=== PATIENT | male | born 1950 | race Caucasian/White ===

== ENCOUNTER 2020-11-12 18:27 | Emergency (ER) | payer MEDICARE, OTHER ==
[~2020-11-12] VITALS: Ht 177.8 cm; Wt 50.0 kg
[~2020-11-12 18:27] MED LIST: ASPI-1444 PO; BENZ2TAB10 PO; CHOL10002 PO; CLOZ100T29 PO; DOCU-350 PO; ESCI20TA87 PO; FAMO-136 PO; THEO300C PO
[2020-11-12 19:30] LABS: BASOPHILS % (AUTO) 0.6 % (0.0-2.0); EOSINOPHILS % (AUTO) 1.6 % (1.0-6.0); HEMATOCRIT 38.6 % (41-53); HEMOGLOBIN 12.6 g/dL (13.5-17.5); LYMPHOCYTES # (AUTO) 1.3 K/uL (1.0-4.8); LYMPHOCYTES % (AUTO) 17.8 % (22.0-44.0); MEAN CORPUSCULAR HEMOGLOBIN 27.8 pg (26.0-34.0); MEAN CORPUSCULAR HGB CONC 32.7 G/dL (31.0-37.0); MEAN CORPUSCULAR VOLUME 85 fL (80-100); MONOCYTES # (AUTO) 0.5 K/uL (0.1-1.0); MONOCYTES % (AUTO) 6.3 % (2.0-9.0); NEUTROPHILS # (AUTO) 5.5 K/uL (1.8-7.7); NEUTROPHILS % (AUTO) 73.7 % (40.0-70.0); PLATELET COUNT (AUTO) 198 K/uL (150-450); RED BLOOD CELL COUNT(AUTO) 4.54 MIL/uL (4.50-5.90); RED CELL DISTRIBUTION WIDTH 14.4 % (11.5-14.5)
[2020-11-12 19:46] LABS: ANION GAP 9 mmol/L (8-16); CALCIUM, TOTAL 8.6 mg/dL (8.8-10.5); CARBON DIOXIDE 28 mmol/L (22-29); CHLORIDE 106 mmol/L (98-107); CREATININE 1.06 mg/dL (0.60-1.30); GLOMERULAR FILTR. RATE CALC > 60 mL/min (>60); GLUCOSE,RANDOM 101 mg/dL (70-110); POTASSIUM 3.8 mmol/L (3.5-5.1); SODIUM SERUM 143 mmol/L (136-145); UREA NITROGEN, BLOOD 26 mg/dL (7-18)
[2020-11-12 20:16] VITALS: BP 100/62
== END 2020-11-12 20:57 | disposition home or self-care (01) ==
LOC: EMS 18:27
DX: I47.1 Supraventricular tachycardia (principal); J44.9 Chronic obstructive pulmonary disease, unspecified; F32.9 Major depressive disorder, single episode, unspecified; K21.9 Gastro-esophageal reflux disease without esophagitis; F20.9 Schizophrenia, unspecified; F17.210 Nicotine dependence, cigarettes, uncomplicated
CPT/HCPCS: 71045; 80048; 83735; 84484; 85025; 93005; 99291; 36415-L1; 36415-TC

== ENCOUNTER 2021-07-17 13:32 | Inpatient (IN) | payer MEDICARE, OTHER ==
[~2021-07-17] VITALS: Ht 188 cm; Wt 51.5 kg
[2021-07-17 15:44] LABS: BASOPHILS % (AUTO) 0.9 % (0.0-2.0); EOSINOPHILS % (AUTO) 4.2 % (1.0-6.0); HEMATOCRIT 40.3 % (41-53); HEMOGLOBIN 12.9 g/dL (13.5-17.5); LYMPHOCYTES # (AUTO) 1.4 K/uL (1.0-4.8); LYMPHOCYTES % (AUTO) 15.4 % (22.0-44.0); MEAN CORPUSCULAR HEMOGLOBIN 27.5 pg (26.0-34.0); MEAN CORPUSCULAR HGB CONC 32.1 G/dL (31.0-37.0); MEAN CORPUSCULAR VOLUME 86 fL (80-100); MONOCYTES # (AUTO) 0.6 K/uL (0.1-1.0); MONOCYTES % (AUTO) 6.5 % (2.0-9.0); NEUTROPHILS # (AUTO) 6.6 K/uL (1.8-7.7); PLATELET COUNT (AUTO) 277 K/uL (150-450); RED CELL DISTRIBUTION WIDTH 14.9 % (11.5-14.5)
[2021-07-17 15:57] LABS: PROTHROMBIN TIME 10.6 SEC (9.4-11.6)
[2021-07-17 15:58] LABS: ANION GAP 7 mmol/L (8-16); CALCIUM, TOTAL 8.8 mg/dL (8.8-10.5); CARBON DIOXIDE 30 mmol/L (22-29); CHLORIDE 109 mmol/L (98-107); CREATININE 0.65 mg/dL (0.60-1.30); GLUCOSE,RANDOM 96 mg/dL (70-110); POTASSIUM 3.9 mmol/L (3.5-5.1); SODIUM SERUM 146 mmol/L (136-145); UREA NITROGEN, BLOOD 18 mg/dL (7-18)
[2021-07-17 16:00] LABS: GLOMERULAR FILTR. RATE CALC > 60 mL/min (>60)
[2021-07-17 16:04] LABS: ALANINE AMINOTRANSFERASE 26 U/L (12-78); ALBUMIN 3.3 g/dL (3.4-5.0); ALKALINE PHOSPHATASE 102 U/L (46-116); ASPARTATE AMINOTRANSFERASE 13 U/L (15-37); BILIRUBIN,TOTAL 0.3 mg/dL (0.1-1.0); TOTAL PROTEIN, SERUM 6.8 g/dL (6.4-8.2)
[2021-07-17 18:00] LABS: COVID AG,FIA SOURCE NASOPHARYNGEAL
[2021-07-17] MEDS ORDERED: ONDANSETRON HCL 4 MG/2 ML VIAL IVP PRN (19:00)
[2021-07-17] MEDS ORDERED: ACETAMINOPHEN 325 MG TABLET PO PRN (19:00)
[2021-07-17] MEDS ORDERED: 0.9% SODIUM CHLORIDE 10 ML SYRINGE IVP PRN (19:00)
[2021-07-17 21:34] VITALS: BP 124/80
[2021-07-18] MEDS ORDERED: SODIUM CHLORIDE 0.9% 1,000 ML IV ONE (01:00)
[2021-07-18] MEDS ORDERED: ALBUTEROL SULFATE 2.5 MG/0.5 ML NEB SOLUTION NEB PRN (01:45)
[2021-07-18] MEDS ORDERED: ACETAMINOPHEN 325 MG TABLET PO PRN (01:45)
[2021-07-18] MEDS ORDERED: MORPHINE SULFATE 2 MG/ML SYRINGE IVP PRN (01:45)
[2021-07-18] MEDS ORDERED: ONDANSETRON HCL 4 MG/2 ML VIAL IVP PRN (01:45)
[2021-07-18] MEDS ORDERED: BISACODYL 10 MG RECTAL RECTAL SUPPOSITORY PR PRN (01:45)
[2021-07-18] MEDS ORDERED: ZOLPIDEM TARTRATE 5 MG TABLET PO PRN (01:45)
[2021-07-18] MEDS ORDERED: IPRATROPIUM BROMIDE 0.5 MG/2.5 ML NEB SOLUTION NEB PRN (01:45)
[2021-07-18] MEDS ORDERED: MAGNESIUM HYDROXIDE SUSPENSION 30 ML UDCUP PO PRN (01:45)
[2021-07-18] MEDS: PANTOPRAZOLE SODIUM 80 MG in SODIUM CHLORIDE 0.9% 100 ML IV SCH ×3 (03:39→23:19)
[2021-07-18 04:00] VITALS: BP 122/76
[2021-07-18] MEDS ORDERED: INFLUENZA VIRUS VACCINE QVS 2021-22 (6MO+)/PF 60 MCG/0.5 ML SYRINGE IM. ONE (06:45)
[2021-07-18] MEDS ORDERED: -PHARMACY VACCINE NOTE- MISC ONE (06:45)
[2021-07-18 07:54] VITALS: BP 145/71
[2021-07-18] MEDS: ESCITALOPRAM OXALATE 20 MG TABLET PO SCH (09:07)
[2021-07-18] MEDS: CHOLECALCIFEROL (VIT D3) 1,000 UNITS [25 MCG] TABLET PO SCH (09:07)
[2021-07-18] MEDS: BENZTROPINE MESYLATE 2 MG TABLET PO SCH (09:07)
[2021-07-18] MEDS: FAMOTIDINE 20 MG TABLET PO SCH (09:07)
[2021-07-18] MEDS: DOCUSATE SODIUM 100 MG CAPSULE PO SCH ×2 (09:07→20:40)
[2021-07-18 10:20] LABS: BASOPHILS % (AUTO) 1.1 % (0.0-2.0); EOSINOPHILS % (AUTO) 6.7 % (1.0-6.0); HEMATOCRIT 37.7 % (41-53); HEMOGLOBIN 12.2 g/dL (13.5-17.5); LYMPHOCYTES # (AUTO) 1.3 K/uL (1.0-4.8); LYMPHOCYTES % (AUTO) 18.9 % (22.0-44.0); MEAN CORPUSCULAR HEMOGLOBIN 27.8 pg (26.0-34.0); MEAN CORPUSCULAR HGB CONC 32.4 G/dL (31.0-37.0); MEAN CORPUSCULAR VOLUME 86 fL (80-100); MONOCYTES # (AUTO) 0.4 K/uL (0.1-1.0); MONOCYTES % (AUTO) 6.5 % (2.0-9.0); NEUTROPHILS # (AUTO) 4.5 K/uL (1.8-7.7); NEUTROPHILS % (AUTO) 66.8 % (40.0-70.0); PLATELET COUNT (AUTO) 246 K/uL (150-450)
[2021-07-18 10:37] LABS: ALANINE AMINOTRANSFERASE 22 U/L (12-78); ALBUMIN 3.1 g/dL (3.4-5.0); ALKALINE PHOSPHATASE 95 U/L (46-116); ANION GAP 8 mmol/L (8-16); ASPARTATE AMINOTRANSFERASE 16 U/L (15-37); BILIRUBIN,TOTAL 0.5 mg/dL (0.1-1.0); CALCIUM, TOTAL 8.5 mg/dL (8.8-10.5); CARBON DIOXIDE 29 mmol/L (22-29); CHLORIDE 110 mmol/L (98-107); CREATININE 0.59 mg/dL (0.60-1.30); GLUCOSE,RANDOM 82 mg/dL (70-110); POTASSIUM 4.2 mmol/L (3.5-5.1); SODIUM SERUM 147 mmol/L (136-145); UREA NITROGEN, BLOOD 15 mg/dL (7-18)
[2021-07-18 10:47] LABS: GLOMERULAR FILTR. RATE CALC > 60 mL/min (>60)
[2021-07-18] MEDS: THEOPHYLLINE ANHYDROUS 300 MG PO SCH (12:09)
[2021-07-18] MEDS ORDERED: PEG 3350/NA SULF,BICARB,CL/KCL 4000 ML SOLUTION PO ONE (13:15)
[2021-07-18 15:45] VITALS: BP 107/65
[2021-07-18] MEDS: DEXTROSE 5%-WATER 1,000 ML IV SCH (16:07)
[2021-07-18 20:00] VITALS: BP 123/86
[2021-07-18] MEDS: DOCUSATE SODIUM 250 MG CAPSULE PO SCH (20:40)
[2021-07-18] MEDS: CloZAPine 100 MG RAPDIS TABLET PO SCH (20:40)
[2021-07-19 04:20] VITALS: BP 106/72
[2021-07-19] MEDS: DEXTROSE 5%-WATER 1,000 ML IV SCH ×2 (06:19→23:48)
[2021-07-19 07:18] LABS: BASOPHILS % (AUTO) 1.1 % (0.0-2.0); EOSINOPHILS % (AUTO) 3.6 % (1.0-6.0); HEMATOCRIT 38.9 % (41-53); HEMOGLOBIN 12.6 g/dL (13.5-17.5); LYMPHOCYTES # (AUTO) 1.1 K/uL (1.0-4.8); LYMPHOCYTES % (AUTO) 14.1 % (22.0-44.0); MEAN CORPUSCULAR HEMOGLOBIN 27.8 pg (26.0-34.0); MEAN CORPUSCULAR HGB CONC 32.4 G/dL (31.0-37.0); MEAN CORPUSCULAR VOLUME 86 fL (80-100); MONOCYTES # (AUTO) 0.6 K/uL (0.1-1.0); MONOCYTES % (AUTO) 7.4 % (2.0-9.0); NEUTROPHILS % (AUTO) 73.8 % (40.0-70.0); PLATELET COUNT (AUTO) 238 K/uL (150-450); RED BLOOD CELL COUNT(AUTO) 4.54 MIL/uL (4.50-5.90); RED CELL DISTRIBUTION WIDTH 15.1 % (11.5-14.5)
[2021-07-19 07:43] LABS: ALANINE AMINOTRANSFERASE 23 U/L (12-78); ALBUMIN 3.1 g/dL (3.4-5.0); ALKALINE PHOSPHATASE 97 U/L (46-116); ANION GAP 7 mmol/L (8-16); ASPARTATE AMINOTRANSFERASE 26 U/L (15-37); BILIRUBIN,TOTAL 0.6 mg/dL (0.1-1.0); CALCIUM, TOTAL 8.5 mg/dL (8.8-10.5); CARBON DIOXIDE 31 mmol/L (22-29); CHLORIDE 107 mmol/L (98-107); CREATININE 0.59 mg/dL (0.60-1.30); GLUCOSE,RANDOM 121 mg/dL (70-110); SODIUM SERUM 145 mmol/L (136-145); TOTAL PROTEIN, SERUM 6.1 g/dL (6.4-8.2); UREA NITROGEN, BLOOD 11 mg/dL (7-18)
[2021-07-19 07:45] LABS: GLOMERULAR FILTR. RATE CALC > 60 mL/min (>60)
[2021-07-19 08:11] VITALS: BP 124/80
[2021-07-19] MEDS ORDERED: SODIUM CHLORIDE 0.9% 1,000 ML ONE (08:18)
[2021-07-19] MEDS: DOCUSATE SODIUM 100 MG CAPSULE PO SCH ×2 (09:00→19:40)
[2021-07-19] MEDS ORDERED: BARIUM SULFATE 0.1% SUSPENSION 450 ML BOTTLE ONE ×2 (09:21)
[2021-07-19] MEDS: FAMOTIDINE 20 MG TABLET PO SCH (10:28)
[2021-07-19] MEDS: THEOPHYLLINE ANHYDROUS 300 MG PO SCH (10:28)
[2021-07-19] MEDS: BENZTROPINE MESYLATE 2 MG TABLET PO SCH (10:28)
[2021-07-19] MEDS: ESCITALOPRAM OXALATE 20 MG TABLET PO SCH (10:28)
[2021-07-19] MEDS: CHOLECALCIFEROL (VIT D3) 1,000 UNITS [25 MCG] TABLET PO SCH (10:28)
[2021-07-19 15:17] VITALS: BP 112/73
[2021-07-19] MEDS ORDERED: SODIUM CHLORIDE 0.9% 100 ML ONE (17:15)
[2021-07-19] MEDS ORDERED: IOHEXOL 350 MG/ML 100 ML VIAL ONE (17:15)
[2021-07-19] MEDS: DOCUSATE SODIUM 250 MG CAPSULE PO SCH (19:40)
[2021-07-19 19:47] VITALS: BP 108/71
[2021-07-19] MEDS: CloZAPine 100 MG RAPDIS TABLET PO SCH (20:06)
[2021-07-20] MEDS ORDERED: PROPOFOL 1% 20 ML VIAL IVP ONE (05:27)
[2021-07-20] MEDS ORDERED: LIDOCAINE 1% 10 ML VIAL IM ONE (05:27)
[2021-07-20 05:53] VITALS: BP 108/78
[2021-07-20 07:56] VITALS: BP 132/80
[2021-07-20] MEDS: DEXTROSE 5%-WATER 1,000 ML IV SCH ×3 (08:00→21:35)
[2021-07-20] MEDS: CHOLECALCIFEROL (VIT D3) 1,000 UNITS [25 MCG] TABLET PO SCH (08:54)
[2021-07-20] MEDS: THEOPHYLLINE ANHYDROUS 300 MG PO SCH (08:54)
[2021-07-20] MEDS: FAMOTIDINE 20 MG TABLET PO SCH (08:54)
[2021-07-20] MEDS: BENZTROPINE MESYLATE 2 MG TABLET PO SCH (08:54)
[2021-07-20] MEDS: ESCITALOPRAM OXALATE 20 MG TABLET PO SCH (08:54)
[2021-07-20] MEDS: DOCUSATE SODIUM 100 MG CAPSULE PO SCH ×2 (08:55→21:00)
[2021-07-20 12:21] LABS: BASOPHILS % (AUTO) 0.8 % (0.0-2.0); EOSINOPHILS % (AUTO) 6.5 % (1.0-6.0); HEMOGLOBIN 11.2 g/dL (13.5-17.5); LYMPHOCYTES # (AUTO) 0.9 K/uL (1.0-4.8); MEAN CORPUSCULAR HEMOGLOBIN 27.8 pg (26.0-34.0); MEAN CORPUSCULAR VOLUME 87 fL (80-100); MONOCYTES # (AUTO) 0.4 K/uL (0.1-1.0); NEUTROPHILS % (AUTO) 70.7 % (40.0-70.0); PLATELET COUNT (AUTO) 227 K/uL (150-450); RED BLOOD CELL COUNT(AUTO) 4.04 MIL/uL (4.50-5.90); RED CELL DISTRIBUTION WIDTH 15.1 % (11.5-14.5)
[2021-07-20 13:02] LABS: ALANINE AMINOTRANSFERASE 28 U/L (12-78); ALBUMIN 2.7 g/dL (3.4-5.0); ALKALINE PHOSPHATASE 95 U/L (46-116); ANION GAP 5 mmol/L (8-16); ASPARTATE AMINOTRANSFERASE 26 U/L (15-37); BILIRUBIN,TOTAL 0.7 mg/dL (0.1-1.0); CALCIUM, TOTAL 7.9 mg/dL (8.8-10.5); CARBON DIOXIDE 29 mmol/L (22-29); CHLORIDE 96 mmol/L (98-107); POTASSIUM 3.5 mmol/L (3.5-5.1); SODIUM SERUM 130 mmol/L (136-145); TOTAL PROTEIN, SERUM 5.6 g/dL (6.4-8.2); UREA NITROGEN, BLOOD 3 mg/dL (7-18)
[2021-07-20 13:06] LABS: GLUCOSE,RANDOM 473 mg/dL (70-110)
[2021-07-20 13:07] LABS: GLOMERULAR FILTR. RATE CALC > 60 mL/min (>60)
[2021-07-20 14:02] LABS: GLUCOMETER DEV NAME(LOC) 6N.1; GLUCOSE,POINT OF CARE 117 MG/DL (70-110)
[2021-07-20 15:26] VITALS: BP 114/65
[2021-07-20 20:00] VITALS: BP 121/71
[2021-07-20] MEDS: DOCUSATE SODIUM 250 MG CAPSULE PO SCH (21:00)
[2021-07-20] MEDS: CloZAPine 100 MG RAPDIS TABLET PO SCH (21:35)
[2021-07-21 04:53] VITALS: BP 122/76
[2021-07-21 07:53] VITALS: BP 121/75
[2021-07-21] MEDS: CHOLECALCIFEROL (VIT D3) 1,000 UNITS [25 MCG] TABLET PO SCH (08:30)
[2021-07-21] MEDS: BENZTROPINE MESYLATE 2 MG TABLET PO SCH (08:30)
[2021-07-21] MEDS: THEOPHYLLINE ANHYDROUS 300 MG PO SCH (08:30)
[2021-07-21] MEDS: ESCITALOPRAM OXALATE 20 MG TABLET PO SCH (08:30)
[2021-07-21] MEDS: DOCUSATE SODIUM 100 MG CAPSULE PO SCH ×2 (08:30→19:52)
[2021-07-21] MEDS: FAMOTIDINE 20 MG TABLET PO SCH (08:31)
[2021-07-21] MEDS: DEXTROSE 5%-WATER 1,000 ML IV SCH ×2 (09:56→23:33)
[2021-07-21] MEDS ORDERED: MAGNESIUM CITRATE 300 ML ORAL SOLUTION PO PRN (10:30)
[2021-07-21 15:58] VITALS: BP 119/78
[2021-07-21] MEDS: DOCUSATE SODIUM 250 MG CAPSULE PO SCH (19:52)
[2021-07-21] MEDS: HYDROCODONE/ACETAMINOPHEN 5-325 MG TABLET PO PRN (19:52)
[2021-07-21] MEDS: CloZAPine 100 MG RAPDIS TABLET PO SCH (19:52)
[2021-07-21 20:16] VITALS: BP 121/74
[2021-07-22] MEDS: HYDROCODONE/ACETAMINOPHEN 5-325 MG TABLET PO PRN (02:46)
[2021-07-22 04:47] VITALS: BP 101/73
[2021-07-22 07:58] VITALS: BP 119/73
[2021-07-22] MEDS: THEOPHYLLINE ANHYDROUS 300 MG PO SCH (08:54)
[2021-07-22] MEDS: DOCUSATE SODIUM 100 MG CAPSULE PO SCH ×2 (08:54→20:18)
[2021-07-22] MEDS: FAMOTIDINE 20 MG TABLET PO SCH (08:54)
[2021-07-22] MEDS: ESCITALOPRAM OXALATE 20 MG TABLET PO SCH (08:54)
[2021-07-22] MEDS: BENZTROPINE MESYLATE 2 MG TABLET PO SCH (08:54)
[2021-07-22] MEDS: CHOLECALCIFEROL (VIT D3) 1,000 UNITS [25 MCG] TABLET PO SCH (08:54)
[2021-07-22 15:29] VITALS: BP 104/67
[2021-07-22] MEDS ORDERED: SODIUM PHOS/SODIUM BIPHOS 133 ML ENEMA PR PRN (16:00)
[2021-07-22] MEDS: DEXTROSE 5%-WATER 1,000 ML IV SCH (17:58)
[2021-07-22 19:57] VITALS: BP 116/71
[2021-07-22] MEDS: DOCUSATE SODIUM 250 MG CAPSULE PO SCH (20:19)
[2021-07-22] MEDS: CloZAPine 100 MG RAPDIS TABLET PO SCH (20:19)
[2021-07-23 04:18] VITALS: BP 102/71
[2021-07-23] MEDS ORDERED: SODIUM PHOS/SODIUM BIPHOS 133 ML ENEMA PR ONE (06:45)
[2021-07-23 06:50] LABS: BASOPHILS % (AUTO) 0.7 % (0.0-2.0); EOSINOPHILS % (AUTO) 5.6 % (1.0-6.0); HEMATOCRIT 39.9 % (41-53); HEMOGLOBIN 12.9 g/dL (13.5-17.5); LYMPHOCYTES # (AUTO) 1.2 K/uL (1.0-4.8); LYMPHOCYTES % (AUTO) 16.3 % (22.0-44.0); MEAN CORPUSCULAR HEMOGLOBIN 27.6 pg (26.0-34.0); MEAN CORPUSCULAR HGB CONC 32.3 G/dL (31.0-37.0); MEAN CORPUSCULAR VOLUME 86 fL (80-100); MONOCYTES # (AUTO) 0.6 K/uL (0.1-1.0); MONOCYTES % (AUTO) 7.8 % (2.0-9.0); NEUTROPHILS # (AUTO) 5.3 K/uL (1.8-7.7); NEUTROPHILS % (AUTO) 69.6 % (40.0-70.0); PLATELET COUNT (AUTO) 271 K/uL (150-450); RED BLOOD CELL COUNT(AUTO) 4.66 MIL/uL (4.50-5.90); RED CELL DISTRIBUTION WIDTH 15.2 % (11.5-14.5)
[2021-07-23] MEDS ORDERED: MAGNESIUM CITRATE 300 ML ORAL SOLUTION PO ONE ×2 (07:00)
[2021-07-23 07:13] LABS: ALANINE AMINOTRANSFERASE 32 U/L (12-78); ALBUMIN 3.1 g/dL (3.4-5.0); ALKALINE PHOSPHATASE 120 U/L (46-116); ANION GAP 5 mmol/L (8-16); ASPARTATE AMINOTRANSFERASE 24 U/L (15-37); CARBON DIOXIDE 33 mmol/L (22-29); CHLORIDE 104 mmol/L (98-107); CREATININE 0.78 mg/dL (0.60-1.30); GLUCOSE,RANDOM 133 mg/dL (70-110); POTASSIUM 3.9 mmol/L (3.5-5.1); SODIUM SERUM 142 mmol/L (136-145); TOTAL PROTEIN, SERUM 6.4 g/dL (6.4-8.2); UREA NITROGEN, BLOOD 5 mg/dL (7-18)
[2021-07-23 07:16] LABS: GLOMERULAR FILTR. RATE CALC > 60 mL/min (>60)
[2021-07-23 08:00] VITALS: BP 117/73
[2021-07-23] MEDS: DOCUSATE SODIUM 100 MG CAPSULE PO SCH ×2 (09:13→20:37)
[2021-07-23] MEDS: ESCITALOPRAM OXALATE 20 MG TABLET PO SCH (09:14)
[2021-07-23] MEDS: FAMOTIDINE 20 MG TABLET PO SCH (09:14)
[2021-07-23] MEDS: BENZTROPINE MESYLATE 2 MG TABLET PO SCH (09:14)
[2021-07-23] MEDS: THEOPHYLLINE ANHYDROUS 300 MG PO SCH (09:14)
[2021-07-23] MEDS: CHOLECALCIFEROL (VIT D3) 1,000 UNITS [25 MCG] TABLET PO SCH (09:15)
[2021-07-23] MEDS: DEXTROSE 5%-WATER 1,000 ML IV SCH ×2 (09:19→16:00)
[2021-07-23] MEDS: NEOMYCIN SULFATE 500 MG TABLET PO SCH ×3 (13:04→22:24)
[2021-07-23] MEDS: ERYTHROMYCIN 250 MG DR TABLET PO SCH ×3 (13:04→20:37)
[2021-07-23 15:30] VITALS: BP 114/64
[2021-07-23 20:00] VITALS: BP 90/64
[2021-07-23] MEDS: HYDROCODONE/ACETAMINOPHEN 5-325 MG TABLET PO PRN (20:37)
[2021-07-23] MEDS: DOCUSATE SODIUM 250 MG CAPSULE PO SCH (20:37)
[2021-07-23] MEDS: CloZAPine 100 MG RAPDIS TABLET PO SCH (20:37)
[2021-07-24] MEDS: HYDROCODONE/ACETAMINOPHEN 5-325 MG TABLET PO PRN (03:17)
[2021-07-24 04:00] VITALS: BP 132/76
[2021-07-24] MEDS: DEXTROSE 5%-WATER 1,000 ML IV SCH ×2 (05:20→21:08)
[2021-07-24 07:51] LABS: BASOPHILS % (AUTO) 0.7 % (0.0-2.0); EOSINOPHILS % (AUTO) 4.8 % (1.0-6.0); HEMATOCRIT 37.6 % (41-53); HEMOGLOBIN 12.1 g/dL (13.5-17.5); LYMPHOCYTES # (AUTO) 1.4 K/uL (1.0-4.8); LYMPHOCYTES % (AUTO) 16.3 % (22.0-44.0); MEAN CORPUSCULAR HEMOGLOBIN 27.7 pg (26.0-34.0); MEAN CORPUSCULAR HGB CONC 32.2 G/dL (31.0-37.0); MEAN CORPUSCULAR VOLUME 86 fL (80-100); MONOCYTES # (AUTO) 0.7 K/uL (0.1-1.0); MONOCYTES % (AUTO) 8.3 % (2.0-9.0); NEUTROPHILS # (AUTO) 6.2 K/uL (1.8-7.7); NEUTROPHILS % (AUTO) 69.9 % (40.0-70.0); PLATELET COUNT (AUTO) 273 K/uL (150-450); RED BLOOD CELL COUNT(AUTO) 4.38 MIL/uL (4.50-5.90); RED CELL DISTRIBUTION WIDTH 15.1 % (11.5-14.5)
[2021-07-24 08:11] LABS: ALANINE AMINOTRANSFERASE 27 U/L (12-78); ALBUMIN 2.8 g/dL (3.4-5.0); ALKALINE PHOSPHATASE 114 U/L (46-116); ANION GAP 3 mmol/L (8-16); ASPARTATE AMINOTRANSFERASE 21 U/L (15-37); BILIRUBIN,TOTAL 0.8 mg/dL (0.1-1.0); CALCIUM, TOTAL 8.6 mg/dL (8.8-10.5); CARBON DIOXIDE 33 mmol/L (22-29); CHLORIDE 104 mmol/L (98-107); CREATININE 0.78 mg/dL (0.60-1.30); GLUCOSE,RANDOM 95 mg/dL (70-110); SODIUM SERUM 140 mmol/L (136-145); UREA NITROGEN, BLOOD 7 mg/dL (7-18)
[2021-07-24 08:12] LABS: GLOMERULAR FILTR. RATE CALC > 60 mL/min (>60)
[2021-07-24 08:24] VITALS: BP 104/72
[2021-07-24] MEDS: THEOPHYLLINE ANHYDROUS 300 MG PO SCH (09:00)
[2021-07-24] MEDS: DOCUSATE SODIUM 100 MG CAPSULE PO SCH ×2 (09:00→21:08)
[2021-07-24] MEDS: CHOLECALCIFEROL (VIT D3) 1,000 UNITS [25 MCG] TABLET PO SCH (09:00)
[2021-07-24] MEDS: ESCITALOPRAM OXALATE 20 MG TABLET PO SCH (09:00)
[2021-07-24] MEDS: BENZTROPINE MESYLATE 2 MG TABLET PO SCH (09:00)
[2021-07-24] MEDS: FAMOTIDINE 20 MG TABLET PO SCH (09:00)
[2021-07-24] MEDS ORDERED: RINGERS SOLUTION,LACTATED 1,000 ML IV ONE ×2 (09:14→15:00)
[2021-07-24 13:51] VITALS: BP 106/64
[2021-07-24] MEDS ORDERED: SODIUM CHLORIDE 0.9% 0 ML ONE (14:17)
[2021-07-24] MEDS ORDERED: DIGOXIN 250 MCG/ML 2 ML AMP ONE (14:51)
[2021-07-24] MEDS ORDERED: AMIODARONE HCL 360 MG in DEXTROSE 5%-WATER 242.8 ML IV ONE (15:30)
[2021-07-24] MEDS ORDERED: AMIODARONE HCL 150 MG in DEXTROSE 5%-WATER 97 ML IV ONE (15:30)
[2021-07-24 20:00] VITALS: BP 104/73
[2021-07-24] MEDS: CloZAPine 100 MG RAPDIS TABLET PO SCH (21:08)
[2021-07-24] MEDS: DOCUSATE SODIUM 250 MG CAPSULE PO SCH (21:08)
[2021-07-24] MEDS ORDERED: AMIODARONE HCL 540 MG in DEXTROSE 5%-WATER 239.2 ML IV ONE (21:30)
[2021-07-25] VITALS (8 sets, daily range): BP systolic 90–139; BP diastolic 58–83
[2021-07-25 05:30] LABS: BASOPHILS % (AUTO) 1.5 % (0.0-2.0); EOSINOPHILS % (AUTO) 5.4 % (1.0-6.0); HEMATOCRIT 38.3 % (41-53); HEMOGLOBIN 12.4 g/dL (13.5-17.5); LYMPHOCYTES # (AUTO) 1.6 K/uL (1.0-4.8); LYMPHOCYTES % (AUTO) 19.8 % (22.0-44.0); MEAN CORPUSCULAR HGB CONC 32.4 G/dL (31.0-37.0); MEAN CORPUSCULAR VOLUME 86 fL (80-100); MONOCYTES # (AUTO) 0.6 K/uL (0.1-1.0); MONOCYTES % (AUTO) 7.3 % (2.0-9.0); NEUTROPHILS # (AUTO) 5.4 K/uL (1.8-7.7); PLATELET COUNT (AUTO) 287 K/uL (150-450); RED BLOOD CELL COUNT(AUTO) 4.44 MIL/uL (4.50-5.90); RED CELL DISTRIBUTION WIDTH 14.9 % (11.5-14.5)
[2021-07-25 05:50] LABS: ALANINE AMINOTRANSFERASE 26 U/L (12-78); ALBUMIN 2.9 g/dL (3.4-5.0); ALKALINE PHOSPHATASE 121 U/L (46-116); ANION GAP 5 mmol/L (8-16); ASPARTATE AMINOTRANSFERASE 24 U/L (15-37); BILIRUBIN,TOTAL 0.8 mg/dL (0.1-1.0); CALCIUM, TOTAL 8.7 mg/dL (8.8-10.5); CARBON DIOXIDE 32 mmol/L (22-29); CHLORIDE 102 mmol/L (98-107); CREATININE 0.91 mg/dL (0.60-1.30); GLUCOSE,RANDOM 98 mg/dL (70-110); POTASSIUM 3.9 mmol/L (3.5-5.1); SODIUM SERUM 139 mmol/L (136-145); TOTAL PROTEIN, SERUM 6.2 g/dL (6.4-8.2); UREA NITROGEN, BLOOD 8 mg/dL (7-18)
[2021-07-25 06:03] LABS: GLOMERULAR FILTR. RATE CALC > 60 mL/min (>60)
[2021-07-25] MEDS: DOCUSATE SODIUM 100 MG CAPSULE PO SCH ×2 (09:32→21:24)
[2021-07-25] MEDS: CHOLECALCIFEROL (VIT D3) 1,000 UNITS [25 MCG] TABLET PO SCH (09:32)
[2021-07-25] MEDS: THEOPHYLLINE ANHYDROUS 300 MG PO SCH (09:33)
[2021-07-25] MEDS: ESCITALOPRAM OXALATE 20 MG TABLET PO SCH (09:33)
[2021-07-25] MEDS: BENZTROPINE MESYLATE 2 MG TABLET PO SCH (09:33)
[2021-07-25] MEDS: FAMOTIDINE 20 MG TABLET PO SCH (09:35)
[2021-07-25] MEDS: DEXTROSE 5%-WATER 1,000 ML IV SCH ×2 (09:35→21:25)
[2021-07-25] MEDS: AMIODARONE HCL 750 MG in DEXTROSE 5%-WATER 485 ML IV SCH (11:42)
[2021-07-25] MEDS: DOCUSATE SODIUM 250 MG CAPSULE PO SCH (21:00)
[2021-07-25] MEDS: CloZAPine 100 MG RAPDIS TABLET PO SCH (21:24)
[2021-07-26 04:05] VITALS: BP 129/92
[2021-07-26 06:31] LABS: BASOPHILS % (AUTO) 0.6 % (0.0-2.0); EOSINOPHILS % (AUTO) 0.9 % (1.0-6.0); HEMOGLOBIN 12.1 g/dL (13.5-17.5); LYMPHOCYTES # (AUTO) 1.2 K/uL (1.0-4.8); LYMPHOCYTES % (AUTO) 9.4 % (22.0-44.0); MEAN CORPUSCULAR HEMOGLOBIN 27.3 pg (26.0-34.0); MEAN CORPUSCULAR HGB CONC 31.9 G/dL (31.0-37.0); MEAN CORPUSCULAR VOLUME 86 fL (80-100); MONOCYTES % (AUTO) 8.5 % (2.0-9.0); NEUTROPHILS # (AUTO) 9.9 K/uL (1.8-7.7); NEUTROPHILS % (AUTO) 80.6 % (40.0-70.0); PLATELET COUNT (AUTO) 279 K/uL (150-450); RED BLOOD CELL COUNT(AUTO) 4.44 MIL/uL (4.50-5.90); RED CELL DISTRIBUTION WIDTH 14.8 % (11.5-14.5)
[2021-07-26 06:54] LABS: ALANINE AMINOTRANSFERASE 22 U/L (12-78); ALBUMIN 2.8 g/dL (3.4-5.0); ALKALINE PHOSPHATASE 111 U/L (46-116); ANION GAP 3 mmol/L (8-16); ASPARTATE AMINOTRANSFERASE 16 U/L (15-37); BILIRUBIN,TOTAL 0.9 mg/dL (0.1-1.0); CALCIUM, TOTAL 8.6 mg/dL (8.8-10.5); CARBON DIOXIDE 30 mmol/L (22-29); CHLORIDE 105 mmol/L (98-107); CREATININE 0.88 mg/dL (0.60-1.30); FREE T4 (FREE THYROXINE) 1.38 ng/dL (0.76-1.46); GLUCOSE,RANDOM 108 mg/dL (70-110); POTASSIUM 3.9 mmol/L (3.5-5.1); SODIUM SERUM 138 mmol/L (136-145); THYROID STIMULATING HORMONE 4.93 uIU/mL (0.36-3.74); TOTAL PROTEIN, SERUM 6.2 g/dL (6.4-8.2); UREA NITROGEN, BLOOD 7 mg/dL (7-18)
[2021-07-26 06:58] LABS: GLOMERULAR FILTR. RATE CALC > 60 mL/min (>60)
[2021-07-26] MEDS ORDERED: SODIUM CL IRRIG SOLN BAG 3,000 ML IRRIG ONE (07:50)
[2021-07-26] MEDS ORDERED: BUPIVACAINE HCL/PF 0.25% 30 ML VIAL ONE (07:50)
[2021-07-26] MEDS ORDERED: RINGERS SOLUTION,LACTATED 1,000 ML IV ONE ×2 (07:50→10:16)
[2021-07-26 07:57] VITALS: BP 94/57
[2021-07-26] MEDS ORDERED: BUPIVACAINE LIPOSOME/PF 1.3%-13.3MG/ML SUSPENSION 20 ML VIAL INJ ONE (08:00)
[2021-07-26] MEDS ORDERED: SODIUM CHLORIDE 0.9% 500 ML IV ONE ×2 (08:39→10:16)
[2021-07-26] MEDS: DOCUSATE SODIUM 100 MG CAPSULE PO SCH ×2 (09:27→21:00)
[2021-07-26] MEDS: THEOPHYLLINE ANHYDROUS 300 MG PO SCH (09:27)
[2021-07-26] MEDS: CHOLECALCIFEROL (VIT D3) 1,000 UNITS [25 MCG] TABLET PO SCH (09:27)
[2021-07-26] MEDS: FAMOTIDINE 20 MG TABLET PO SCH (09:27)
[2021-07-26] MEDS: ESCITALOPRAM OXALATE 20 MG TABLET PO SCH (09:28)
[2021-07-26] MEDS: BENZTROPINE MESYLATE 2 MG TABLET PO SCH (09:28)
[2021-07-26] MEDS ORDERED: EPHEDrine SULFATE 50 MG/ML VIAL IM ONE (12:00)
[2021-07-26] MEDS ORDERED: ONDANSETRON HCL 4 MG/2 ML VIAL IVP ONE (12:00)
[2021-07-26] MEDS ORDERED: FentaNYL CITRATE PF 100 MCG/2 ML VIAL IVP ONE (12:00)
[2021-07-26] MEDS ORDERED: 0.9% SODIUM CHLORIDE 10 ML VIAL IVP ONE (12:00)
[2021-07-26] MEDS ORDERED: SUCCINYLCHOLINE CHLORIDE 20 MG/ML 10 ML VIAL IVP ONE (12:00)
[2021-07-26] MEDS ORDERED: CeFAZolin 1 GM/DEXTROSE 50 ML BAG IV ONE (12:00)
[2021-07-26] MEDS ORDERED: LIDOCAINE 1% 10 ML VIAL ID ONE (12:00)
[2021-07-26] MEDS ORDERED: ROCURONIUM BROMIDE 10 MG/ML 5 ML VIAL IVP ONE (12:00)
[2021-07-26] MEDS ORDERED: MIDAZOLAM HCL 2 MG/2 ML VIAL IVP ONE (12:00)
[2021-07-26] MEDS ORDERED: KETOROLAC TROMETHAMINE 60 MG/2 ML VIAL IM ONE (12:00)
[2021-07-26] MEDS ORDERED: PROPOFOL 1% 20 ML VIAL IVP ONE (12:00)
[2021-07-26] MEDS ORDERED: BUPIVACAINE HCL/PF 0.5% 30 ML VIAL ONE (12:25)
[2021-07-26] MEDS ORDERED: MetroNIDAZOLE 500 MG/NACL 100 ML IV ONE (13:34)
[2021-07-26] MEDS ORDERED: HYDROmorphone 2 MG/ML VIAL IVP PRN ×2 (14:30→16:30)
[2021-07-26] MEDS ORDERED: FentaNYL CITRATE PF 100 MCG/2 ML VIAL IVP PRN (14:30)
[2021-07-26] MEDS ORDERED: HYDROCODONE/ACETAMINOPHEN 5-325 MG TABLET PO PRN (16:30)
[2021-07-26] MEDS: PIPERACILLIN/TAZO 3.375 GM/D5W 50 ML IV SCH ×2 (17:59→23:31)
[2021-07-26] MEDS: DEXTROSE 5%-WATER 1,000 ML IV SCH (17:59)
[2021-07-26] MEDS: AMIODARONE HCL 750 MG in DEXTROSE 5%-WATER 485 ML IV SCH (18:01)
[2021-07-26 18:03] VITALS: BP 102/66
[2021-07-26 19:18] VITALS: BP 114/74
[2021-07-26] MEDS: OXYGEN THERAPY IH SCH (20:00)
[2021-07-26] MEDS: DOCUSATE SODIUM 250 MG CAPSULE PO SCH (21:00)
[2021-07-26] MEDS: CloZAPine 100 MG RAPDIS TABLET PO SCH (21:17)
[2021-07-27] VITALS (7 sets, daily range): BP systolic 93–143; BP diastolic 53–73
[2021-07-27] MEDS: DEXTROSE 5%-WATER 1,000 ML IV SCH ×2 (02:58→17:20)
[2021-07-27] MEDS: PIPERACILLIN/TAZO 3.375 GM/D5W 50 ML IV SCH ×4 (04:16→22:57)
[2021-07-27 06:25] LABS: BASOPHILS % (AUTO) 0.4 % (0.0-2.0); EOSINOPHILS % (AUTO) 1.6 % (1.0-6.0); HEMATOCRIT 32.3 % (41-53); HEMOGLOBIN 10.5 g/dL (13.5-17.5); LYMPHOCYTES % (AUTO) 8.5 % (22.0-44.0); MEAN CORPUSCULAR HEMOGLOBIN 27.8 pg (26.0-34.0); MEAN CORPUSCULAR HGB CONC 32.6 G/dL (31.0-37.0); MEAN CORPUSCULAR VOLUME 86 fL (80-100); MONOCYTES # (AUTO) 0.6 K/uL (0.1-1.0); MONOCYTES % (AUTO) 5.3 % (2.0-9.0); NEUTROPHILS # (AUTO) 9.5 K/uL (1.8-7.7); NEUTROPHILS % (AUTO) 84.2 % (40.0-70.0); PLATELET COUNT (AUTO) 256 K/uL (150-450); RED BLOOD CELL COUNT(AUTO) 3.78 MIL/uL (4.50-5.90); RED CELL DISTRIBUTION WIDTH 14.8 % (11.5-14.5)
[2021-07-27 06:43] LABS: ALANINE AMINOTRANSFERASE 15 U/L (12-78); ALBUMIN 2.1 g/dL (3.4-5.0); ALKALINE PHOSPHATASE 82 U/L (46-116); ANION GAP 6 mmol/L (8-16); ASPARTATE AMINOTRANSFERASE 18 U/L (15-37); BILIRUBIN,TOTAL 0.8 mg/dL (0.1-1.0); CARBON DIOXIDE 29 mmol/L (22-29); CHLORIDE 101 mmol/L (98-107); CREATININE 0.94 mg/dL (0.60-1.30); GLUCOSE,RANDOM 154 mg/dL (70-110); POTASSIUM 3.9 mmol/L (3.5-5.1); SODIUM SERUM 136 mmol/L (136-145); UREA NITROGEN, BLOOD 8 mg/dL (7-18)
[2021-07-27 06:45] LABS: GLOMERULAR FILTR. RATE CALC > 60 mL/min (>60)
[2021-07-27] MEDS: OXYGEN THERAPY IH SCH ×2 (08:00→20:00)
[2021-07-27] MEDS: CHOLECALCIFEROL (VIT D3) 1,000 UNITS [25 MCG] TABLET PO SCH (08:24)
[2021-07-27] MEDS: BENZTROPINE MESYLATE 2 MG TABLET PO SCH (08:24)
[2021-07-27] MEDS: ESCITALOPRAM OXALATE 20 MG TABLET PO SCH (08:24)
[2021-07-27] MEDS: FAMOTIDINE 20 MG TABLET PO SCH (08:25)
[2021-07-27] MEDS: THEOPHYLLINE ANHYDROUS 300 MG PO SCH (08:25)
[2021-07-27] MEDS: DOCUSATE SODIUM 100 MG CAPSULE PO SCH ×2 (08:26→21:00)
[2021-07-27] MEDS ORDERED: SODIUM CHLORIDE 0.9% 500 ML IV ONE (09:45)
[2021-07-27] MEDS: TAMSULOSIN HCL 0.4 MG CAPSULE PO SCH (17:20)
[2021-07-27] MEDS: DOCUSATE SODIUM 250 MG CAPSULE PO SCH (21:00)
[2021-07-27] MEDS: CloZAPine 100 MG RAPDIS TABLET PO SCH (21:45)
[2021-07-27] MEDS: AMIODARONE HCL 200 MG TABLET PO SCH (21:46)
[2021-07-28] VITALS (7 sets, daily range): BP systolic 99–127; BP diastolic 54–86
[2021-07-28] MEDS: PIPERACILLIN/TAZO 3.375 GM/D5W 50 ML IV SCH ×4 (04:46→23:50)
[2021-07-28] MEDS: DEXTROSE 5%-WATER 1,000 ML IV SCH ×2 (04:46→21:24)
[2021-07-28] MEDS: BENZTROPINE MESYLATE 2 MG TABLET PO SCH (08:52)
[2021-07-28] MEDS: AMIODARONE HCL 200 MG TABLET PO SCH ×2 (08:53→21:22)
[2021-07-28] MEDS: FAMOTIDINE 20 MG TABLET PO SCH (08:53)
[2021-07-28] MEDS: ESCITALOPRAM OXALATE 20 MG TABLET PO SCH (08:53)
[2021-07-28] MEDS: TAMSULOSIN HCL 0.4 MG CAPSULE PO SCH (08:53)
[2021-07-28] MEDS: THEOPHYLLINE ANHYDROUS 300 MG PO SCH (08:53)
[2021-07-28] MEDS: CHOLECALCIFEROL (VIT D3) 1,000 UNITS [25 MCG] TABLET PO SCH (08:53)
[2021-07-28] MEDS: DOCUSATE SODIUM 100 MG CAPSULE PO SCH ×2 (09:00→21:00)
[2021-07-28 10:29] LABS: BASOPHILS % (AUTO) 0.3 % (0.0-2.0); HEMATOCRIT 34.8 % (41-53); HEMOGLOBIN 11.3 g/dL (13.5-17.5); LYMPHOCYTES # (AUTO) 0.8 K/uL (1.0-4.8); LYMPHOCYTES % (AUTO) 7.7 % (22.0-44.0); MEAN CORPUSCULAR HEMOGLOBIN 27.9 pg (26.0-34.0); MEAN CORPUSCULAR HGB CONC 32.6 G/dL (31.0-37.0); MEAN CORPUSCULAR VOLUME 86 fL (80-100); MONOCYTES # (AUTO) 0.7 K/uL (0.1-1.0); MONOCYTES % (AUTO) 7.4 % (2.0-9.0); NEUTROPHILS # (AUTO) 8.2 K/uL (1.8-7.7); NEUTROPHILS % (AUTO) 82.6 % (40.0-70.0); PLATELET COUNT (AUTO) 257 K/uL (150-450); RED BLOOD CELL COUNT(AUTO) 4.07 MIL/uL (4.50-5.90); RED CELL DISTRIBUTION WIDTH 14.3 % (11.5-14.5)
[2021-07-28 10:38] LABS: CHLORIDE 99 mmol/L (98-107); POTASSIUM 3.8 mmol/L (3.5-5.1); SODIUM SERUM 138 mmol/L (136-145)
[2021-07-28 10:54] LABS: ALANINE AMINOTRANSFERASE 20 U/L (12-78); ALBUMIN 2.4 g/dL (3.4-5.0); ALKALINE PHOSPHATASE 88 U/L (46-116); ANION GAP 9 mmol/L (8-16); ASPARTATE AMINOTRANSFERASE 34 U/L (15-37); BILIRUBIN,TOTAL 0.5 mg/dL (0.1-1.0); CALCIUM, TOTAL 8.4 mg/dL (8.8-10.5); CARBON DIOXIDE 30 mmol/L (22-29); CREATININE 0.82 mg/dL (0.60-1.30); GLUCOSE,RANDOM 137 mg/dL (70-110); PHOSPHORUS 2.9 mg/dL (2.5-4.9); TOTAL PROTEIN, SERUM 5.9 g/dL (6.4-8.2); UREA NITROGEN, BLOOD 7 mg/dL (7-18)
[2021-07-28 11:00] LABS: GLOMERULAR FILTR. RATE CALC > 60 mL/min (>60)
[2021-07-28] MEDS: OXYGEN THERAPY IH SCH (20:00)
[2021-07-28] MEDS: DOCUSATE SODIUM 250 MG CAPSULE PO SCH (21:00)
[2021-07-28] MEDS: CloZAPine 100 MG RAPDIS TABLET PO SCH (21:22)
[2021-07-29 04:15] VITALS: BP 95/59
[2021-07-29] MEDS: PIPERACILLIN/TAZO 3.375 GM/D5W 50 ML IV SCH ×4 (04:40→23:44)
[2021-07-29 06:57] LABS: ALANINE AMINOTRANSFERASE 21 U/L (12-78); ALBUMIN 2.4 g/dL (3.4-5.0); ALKALINE PHOSPHATASE 81 U/L (46-116); ANION GAP 8 mmol/L (8-16); ASPARTATE AMINOTRANSFERASE 32 U/L (15-37); BILIRUBIN,TOTAL 0.6 mg/dL (0.1-1.0); CALCIUM, TOTAL 8.6 mg/dL (8.8-10.5); CARBON DIOXIDE 30 mmol/L (22-29); CHLORIDE 100 mmol/L (98-107); CREATININE 0.78 mg/dL (0.60-1.30); GLUCOSE,RANDOM 135 mg/dL (70-110); POTASSIUM 3.4 mmol/L (3.5-5.1); SODIUM SERUM 138 mmol/L (136-145); TOTAL PROTEIN, SERUM 5.9 g/dL (6.4-8.2); UREA NITROGEN, BLOOD 5 mg/dL (7-18)
[2021-07-29 07:01] LABS: GLOMERULAR FILTR. RATE CALC > 60 mL/min (>60)
[2021-07-29 07:02] LABS: BASOPHILS % (AUTO) 0.5 % (0.0-2.0); EOSINOPHILS % (AUTO) 3.3 % (1.0-6.0); HEMATOCRIT 36.1 % (41-53); HEMOGLOBIN 11.9 g/dL (13.5-17.5); LYMPHOCYTES # (AUTO) 0.9 K/uL (1.0-4.8); LYMPHOCYTES % (AUTO) 8.6 % (22.0-44.0); MEAN CORPUSCULAR HEMOGLOBIN 27.9 pg (26.0-34.0); MEAN CORPUSCULAR HGB CONC 32.9 G/dL (31.0-37.0); MEAN CORPUSCULAR VOLUME 85 fL (80-100); MONOCYTES # (AUTO) 0.8 K/uL (0.1-1.0); MONOCYTES % (AUTO) 7.7 % (2.0-9.0); NEUTROPHILS # (AUTO) 7.9 K/uL (1.8-7.7); NEUTROPHILS % (AUTO) 79.9 % (40.0-70.0); PLATELET COUNT (AUTO) 294 K/uL (150-450); RED BLOOD CELL COUNT(AUTO) 4.25 MIL/uL (4.50-5.90); RED CELL DISTRIBUTION WIDTH 14.4 % (11.5-14.5)
[2021-07-29 07:30] VITALS: BP 99/59
[2021-07-29] MEDS: OXYGEN THERAPY IH SCH ×2 (08:00→21:17)
[2021-07-29] MEDS: DOCUSATE SODIUM 100 MG CAPSULE PO SCH ×2 (09:00→21:17)
[2021-07-29] MEDS: THEOPHYLLINE ANHYDROUS 300 MG PO SCH (09:24)
[2021-07-29] MEDS: TAMSULOSIN HCL 0.4 MG CAPSULE PO SCH (09:24)
[2021-07-29] MEDS: CHOLECALCIFEROL (VIT D3) 1,000 UNITS [25 MCG] TABLET PO SCH (09:24)
[2021-07-29] MEDS: FAMOTIDINE 20 MG TABLET PO SCH (09:24)
[2021-07-29] MEDS: ESCITALOPRAM OXALATE 20 MG TABLET PO SCH (09:24)
[2021-07-29] MEDS: AMIODARONE HCL 200 MG TABLET PO SCH (09:24)
[2021-07-29] MEDS: BENZTROPINE MESYLATE 2 MG TABLET PO SCH (09:24)
[2021-07-29] MEDS: DEXTROSE 5%-WATER 1,000 ML IV SCH ×2 (09:26→23:44)
[2021-07-29 11:44] VITALS: BP_SYST 10; BP_SYST 109; BP_DIAS 75
[2021-07-29 15:46] VITALS: BP 101/66
[2021-07-29 19:54] VITALS: BP 102/60
[2021-07-29] MEDS: CloZAPine 100 MG RAPDIS TABLET PO SCH (21:17)
[2021-07-29] MEDS: DOCUSATE SODIUM 250 MG CAPSULE PO SCH (21:17)
[2021-07-30 00:01] VITALS: BP 118/70
[2021-07-30 05:18] VITALS: BP 11/80
[2021-07-30] MEDS: PIPERACILLIN/TAZO 3.375 GM/D5W 50 ML IV SCH ×3 (06:08→17:13)
[2021-07-30] MEDS ORDERED: AMIODARONE HCL 200 MG TABLET PO SCH (07:00)
[2021-07-30 07:39] VITALS: BP 112/72
[2021-07-30] MEDS: OXYGEN THERAPY IH SCH (08:00)
[2021-07-30] MEDS: THEOPHYLLINE ANHYDROUS 300 MG PO SCH (08:02)
[2021-07-30] MEDS: CHOLECALCIFEROL (VIT D3) 1,000 UNITS [25 MCG] TABLET PO SCH (08:02)
[2021-07-30] MEDS: BENZTROPINE MESYLATE 2 MG TABLET PO SCH (08:02)
[2021-07-30] MEDS: FAMOTIDINE 20 MG TABLET PO SCH (08:02)
[2021-07-30] MEDS: ESCITALOPRAM OXALATE 20 MG TABLET PO SCH (08:02)
[2021-07-30] MEDS: TAMSULOSIN HCL 0.4 MG CAPSULE PO SCH (08:02)
[2021-07-30] MEDS: DOCUSATE SODIUM 100 MG CAPSULE PO SCH (08:03)
[2021-07-30 10:59] VITALS: BP 116/78
[2021-07-30] MEDS: DEXTROSE 5%-WATER 1,000 ML IV SCH (12:39)
[2021-07-30 14:42] VITALS: BP 108/72
[2021-07-30 16:17] LABS: COVID AG,FIA SOURCE NASOPHARYNGEAL
== END 2021-07-30 18:40 | DRG 329 ==
LOC: EMS 13:39 → 6N 20:38 → ICU 07-24 15:10 → 5S 07-25 17:35
PROVIDERS: ADMIT Hospitalist; ATTEND Hospitalist
PROC: 0DBP8ZX Excision of Rectum, Via Natural or Artificial Opening Endoscopic, Diagnostic (ICD-10-PCS; principal; 2021-07-19 09:00)
PROC: 0DTP0ZZ Resection of Rectum, Open Approach (ICD-10-PCS; 2021-07-26)
PROC: 0D1B0Z4 Bypass Ileum to Cutaneous, Open Approach (ICD-10-PCS; 2021-07-26)
DX: C20 Malignant neoplasm of rectum (principal); E43 Unspecified severe protein-calorie malnutrition; C18.7 Malignant neoplasm of sigmoid colon; E87.1 Hypo-osmolality and hyponatremia; K56.690 Other partial intestinal obstruction; Z68.1 Body mass index [BMI] 19.9 or less, adult; I47.1 Supraventricular tachycardia; D01.1 Carcinoma in situ of rectosigmoid junction; D64.9 Anemia, unspecified; F25.9 Schizoaffective disorder, unspecified; Z20.822 Contact with and (suspected) exposure to COVID-19; D50.0 Iron deficiency anemia secondary to blood loss (chronic); Z53.9 Procedure and treatment not carried out, unspecified reason; J43.9 Emphysema, unspecified; K21.9 Gastro-esophageal reflux disease without esophagitis; F17.210 Nicotine dependence, cigarettes, uncomplicated; F32.9 Major depressive disorder, single episode, unspecified; Z79.899 Other long term (current) drug therapy; Z90.49 Acquired absence of other specified parts of digestive tract; Z79.82 Long term (current) use of aspirin
CPT/HCPCS: 74177; 80053; 82378; 82962; 83735; 84100; 84439; 84443; 84484; 85025; 85610; 86850; 86900; 86901; 86923; 87081; 88305; 88309; 93005; 93308; 97163; 97530; 99285; C9113; C9290; G0378; J0282; J0330; J0690; J1160; J1885; J2250; J2405; J2543; J2704; J3010; J3490; J7030; J7040; J7050; J7060; J7120; Q9967

== ENCOUNTER 2021-11-10 11:24 | Inpatient (IN) | payer MEDICARE, OTHER ==
[~2021-11-10] VITALS: Ht 188 cm; Wt 45.9 kg
[2021-11-10] MEDS ORDERED: SODIUM CHLORIDE 0.9% 1,500 ML IV ONE (11:45)
[2021-11-10] MEDS ORDERED: 0.9% SODIUM CHLORIDE 10 ML SYRINGE IVP PRN ×2 (11:45→14:15)
[2021-11-10 12:01] LABS: BASOPHILS % (AUTO) 0.5 % (0.0-2.0); EOSINOPHILS % (AUTO) 0.3 % (1.0-6.0); HEMOGLOBIN 15.9 g/dL (13.5-17.5); LYMPHOCYTES % (AUTO) 9.9 % (22.0-44.0); MEAN CORPUSCULAR HEMOGLOBIN 27.1 pg (26.0-34.0); MEAN CORPUSCULAR HGB CONC 32.5 G/dL (31.0-37.0); MEAN CORPUSCULAR VOLUME 83 fL (80-100); MONOCYTES # (AUTO) 0.7 K/uL (0.1-1.0); MONOCYTES % (AUTO) 6.3 % (2.0-9.0); NEUTROPHILS # (AUTO) 8.6 K/uL (1.8-7.7); PLATELET COUNT (AUTO) 325 K/uL (150-450); RED BLOOD CELL COUNT(AUTO) 5.87 MIL/uL (4.50-5.90); RED CELL DISTRIBUTION WIDTH 16.7 % (11.5-14.5)
[2021-11-10 12:15] LABS: ANION GAP 16 mmol/L (8-16); CALCIUM, TOTAL 10.4 mg/dL (8.8-10.5); CARBON DIOXIDE 21 mmol/L (22-29); CHLORIDE 93 mmol/L (98-107); GLOMERULAR FILTR. RATE CALC 14 mL/min (>60); GLUCOSE,RANDOM 215 mg/dL (70-110); POTASSIUM 5.5 mmol/L (3.5-5.1); SODIUM SERUM 130 mmol/L (136-145); UREA NITROGEN, BLOOD 72 mg/dL (7-18)
[2021-11-10 12:16] LABS: PROTHROMBIN TIME 10.8 SEC (9.4-11.6)
[2021-11-10 12:25] LABS: B-TYPE NATRIURETIC PEPTIDE 55 pg/mL (0-100)
[2021-11-10 12:26] LABS: ALANINE AMINOTRANSFERASE 31 U/L (12-78); ALBUMIN 4.3 g/dL (3.4-5.0); ALKALINE PHOSPHATASE 149 U/L (46-116); ASPARTATE AMINOTRANSFERASE 16 U/L (15-37); BILIRUBIN,TOTAL 0.6 mg/dL (0.1-1.0); CREATINE KINASE, TOTAL ONLY 34 U/L (39-308); FREE T4 (FREE THYROXINE) 1.51 ng/dL (0.76-1.46); THYROID STIMULATING HORMONE 11.82 uIU/mL (0.36-3.74); TOTAL PROTEIN, SERUM 9.4 g/dL (6.4-8.2)
[2021-11-10 12:37] LABS: LACTIC ACID 4.3 mmol/L (0.4-2.0)
[2021-11-10 13:15] LABS: COVID AG,FIA SOURCE NASAL SWAB
[2021-11-10 13:45] LABS: INFLUENZA TYPE A NEGATIVE FOR TYPE A (NEGATIVE); INFLUENZA TYPE B NEGATIVE FOR TYPE B (NEGATIVE)
[2021-11-10] MEDS ORDERED: CefTRIAXone 1 GM/DEXTROSE 50 ML IV ONE (14:15)
[2021-11-10] MEDS ORDERED: AZITHROMYCIN 500 MG/NS 250 ML IV ONE (14:15)
[2021-11-10 17:45] VITALS: BP 104/82
[2021-11-10] MEDS ORDERED: ZOLPIDEM TARTRATE 5 MG TABLET PO PRN (20:45)
[2021-11-10] MEDS ORDERED: ACETAMINOPHEN 325 MG TABLET PO PRN (20:45)
[2021-11-10] MEDS ORDERED: HYDROCODONE/ACETAMINOPHEN 5-325 MG TABLET PO PRN (20:45)
[2021-11-10] MEDS ORDERED: IPRATROPIUM BROMIDE 0.5 MG/2.5 ML NEB SOLUTION NEB PRN (20:45)
[2021-11-10] MEDS ORDERED: ALBUTEROL SULFATE 2.5 MG/0.5 ML NEB SOLUTION NEB PRN (20:45)
[2021-11-10] MEDS ORDERED: BISACODYL 10 MG RECTAL RECTAL SUPPOSITORY PR PRN (20:45)
[2021-11-10] MEDS ORDERED: MORPHINE SULFATE 2 MG/ML SYRINGE IVP PRN (20:45)
[2021-11-10] MEDS ORDERED: ONDANSETRON HCL 4 MG/2 ML VIAL IVP PRN (20:45)
[2021-11-10] MEDS ORDERED: MAGNESIUM HYDROXIDE SUSPENSION 30 ML UDCUP PO PRN (20:45)
[2021-11-10] MEDS ORDERED: SODIUM ZIRCONIUM CYCLOSILICATE 5 GM POWDER PACKET PO ONE (21:00)
[2021-11-10] MEDS: DOCUSATE SODIUM 100 MG CAPSULE PO SCH (21:38)
[2021-11-10] MEDS: DEXTROSE 5%-0.9% SODIUM CHL 1,000 ML IV SCH (21:39)
[2021-11-10] MEDS: HEPARIN SODIUM,PORCINE 5,000 UNITS/ML VIAL SQ SCH (23:37)
[2021-11-10 23:52] VITALS: BP 107/65
[2021-11-11] VITALS (8 sets, daily range): BP systolic 101–115; BP diastolic 57–68
[2021-11-11] MEDS: DEXTROSE 5%-0.9% SODIUM CHL 1,000 ML IV SCH ×2 (04:48→14:26)
[2021-11-11 06:18] LABS: BASOPHILS % (AUTO) 0.4 % (0.0-2.0); EOSINOPHILS % (AUTO) 2.9 % (1.0-6.0); HEMATOCRIT 39.5 % (41-53); HEMOGLOBIN 12.8 g/dL (13.5-17.5); LYMPHOCYTES # (AUTO) 1.1 K/uL (1.0-4.8); LYMPHOCYTES % (AUTO) 14.7 % (22.0-44.0); MEAN CORPUSCULAR HEMOGLOBIN 27.3 pg (26.0-34.0); MEAN CORPUSCULAR HGB CONC 32.4 G/dL (31.0-37.0); MEAN CORPUSCULAR VOLUME 84 fL (80-100); MONOCYTES # (AUTO) 0.8 K/uL (0.1-1.0); MONOCYTES % (AUTO) 9.9 % (2.0-9.0); NEUTROPHILS # (AUTO) 5.6 K/uL (1.8-7.7); NEUTROPHILS % (AUTO) 72.1 % (40.0-70.0); PLATELET COUNT (AUTO) 262 K/uL (150-450); RED CELL DISTRIBUTION WIDTH 16.4 % (11.5-14.5)
[2021-11-11 06:25] LABS: HEMOGLOBIN A1C 5.8 % (3.8-5.6)
[2021-11-11 06:32] LABS: ALBUMIN 3.5 g/dL (3.4-5.0); BILIRUBIN,TOTAL 0.5 mg/dL (0.1-1.0); CREATININE 2.67 mg/dL (0.60-1.30); MAGNESIUM 2.6 mg/dL (1.80-2.40); PHOSPHORUS 6.4 mg/dL (2.5-4.9); POTASSIUM 4.3 mmol/L (3.5-5.1); TOTAL PROTEIN, SERUM 7.7 g/dL (6.4-8.2)
[2021-11-11] MEDS: DOCUSATE SODIUM 100 MG CAPSULE PO SCH ×2 (09:00→22:44)
[2021-11-11] MEDS: PANTOPRAZOLE SODIUM 40 MG/VIAL IVP SCH (09:41)
[2021-11-11] MEDS: HEPARIN SODIUM,PORCINE 5,000 UNITS/ML VIAL SQ SCH ×2 (09:41→16:52)
[2021-11-11] MEDS ORDERED: INSULIN LISPRO 100 UNITS/ML SQ PRN (15:30)
[2021-11-11] MEDS ORDERED: DEXTROSE 50%-WATER 25 GM/50 ML SYRINGE IVP PRN (15:30)
[2021-11-11 19:56] LABS: GLUCOMETER DEV NAME(LOC) 5N.1C; GLUCOSE,POINT OF CARE 90 MG/DL (70-110)
[2021-11-12] MEDS: DEXTROSE 5%-0.9% SODIUM CHL 1,000 ML IV SCH ×3 (01:20→21:03)
[2021-11-12] MEDS: HEPARIN SODIUM,PORCINE 5,000 UNITS/ML VIAL SQ SCH ×3 (01:21→17:24)
[2021-11-12 01:45] VITALS: BP 135/79
[2021-11-12 04:54] VITALS: BP 121/62
[2021-11-12 06:00] LABS: BASOPHILS % (AUTO) 0.5 % (0.0-2.0); EOSINOPHILS % (AUTO) 4.7 % (1.0-6.0); HEMATOCRIT 37.1 % (41-53); LYMPHOCYTES # (AUTO) 0.8 K/uL (1.0-4.8); LYMPHOCYTES % (AUTO) 12.1 % (22.0-44.0); MEAN CORPUSCULAR HEMOGLOBIN 27.3 pg (26.0-34.0); MEAN CORPUSCULAR HGB CONC 32.5 G/dL (31.0-37.0); MEAN CORPUSCULAR VOLUME 84 fL (80-100); MONOCYTES # (AUTO) 0.7 K/uL (0.1-1.0); MONOCYTES % (AUTO) 9.7 % (2.0-9.0); PLATELET COUNT (AUTO) 225 K/uL (150-450); RED BLOOD CELL COUNT(AUTO) 4.41 MIL/uL (4.50-5.90); RED CELL DISTRIBUTION WIDTH 16.3 % (11.5-14.5)
[2021-11-12 06:24] LABS: ALANINE AMINOTRANSFERASE 26 U/L (12-78); ALBUMIN 3.4 g/dL (3.4-5.0); ALKALINE PHOSPHATASE 112 U/L (46-116); ANION GAP 11 mmol/L (8-16); ASPARTATE AMINOTRANSFERASE 22 U/L (15-37); BILIRUBIN,TOTAL 0.4 mg/dL (0.1-1.0); CARBON DIOXIDE 26 mmol/L (22-29); CHLORIDE 109 mmol/L (98-107); CREATININE 1.14 mg/dL (0.60-1.30); GLUCOSE,RANDOM 95 mg/dL (70-110); PHOSPHORUS 2.7 mg/dL (2.5-4.9); POTASSIUM 3.8 mmol/L (3.5-5.1); SODIUM SERUM 146 mmol/L (136-145); TOTAL PROTEIN, SERUM 7.2 g/dL (6.4-8.2); UREA NITROGEN, BLOOD 43 mg/dL (7-18)
[2021-11-12 06:25] LABS: GLOMERULAR FILTR. RATE CALC > 60 mL/min (>60)
[2021-11-12 09:38] LABS: ANION GAP 10 mmol/L (8-16); CALCIUM, TOTAL 8.9 mg/dL (8.8-10.5); CARBON DIOXIDE 25 mmol/L (22-29); CHLORIDE 111 mmol/L (98-107); CREATININE 1.05 mg/dL (0.60-1.30); GLUCOSE,RANDOM 96 mg/dL (70-110); PHOSPHORUS 2.3 mg/dL (2.5-4.9); POTASSIUM 4.3 mmol/L (3.5-5.1); SODIUM SERUM 146 mmol/L (136-145); UREA NITROGEN, BLOOD 41 mg/dL (7-18)
[2021-11-12 09:39] LABS: GLOMERULAR FILTR. RATE CALC > 60 mL/min (>60)
[2021-11-12] MEDS: PANTOPRAZOLE SODIUM 40 MG/VIAL IVP SCH (10:08)
[2021-11-12] MEDS: MULTIVITAMINS WITH MINERALS, THERAPEUTIC TABLET PO SCH (10:09)
[2021-11-12] MEDS: DOCUSATE SODIUM 100 MG CAPSULE PO SCH ×2 (10:09→21:03)
[2021-11-12] MEDS: THIAMINE 100 MG TABLET PO SCH (10:09)
[2021-11-12] MEDS: DEXTROSE 5%-0.45% SODIUM CHL 1,000 ML IV SCH (10:12)
[2021-11-12 12:31] VITALS: BP 104/62
[2021-11-12 13:21] LABS: GLUCOMETER DEV NAME(LOC) 5N.1C; GLUCOSE,POINT OF CARE 91 MG/DL (70-110)
[2021-11-12 14:26] LABS: GLUCOMETER DEV NAME(LOC) 5N.3; GLUCOSE,POINT OF CARE 62 MG/DL (70-110)
[2021-11-12 14:26] LABS: GLUCOMETER DEV NAME(LOC) 5N.3; GLUCOSE,POINT OF CARE 127 MG/DL (70-110)
[2021-11-12 16:11] VITALS: BP 126/48
[2021-11-12 18:41] LABS: GLUCOMETER DEV NAME(LOC) 5S.1; GLUCOSE,POINT OF CARE 118 MG/DL (70-110)
[2021-11-12 19:15] VITALS: BP 103/58
[2021-11-12 19:56] LABS: GLUCOMETER DEV NAME(LOC) 5S.2B; GLUCOSE,POINT OF CARE 62 MG/DL (70-110)
[2021-11-12 22:21] LABS: GLUCOMETER DEV NAME(LOC) 5S.2B; GLUCOSE,POINT OF CARE 119 MG/DL (70-110)
[2021-11-12 23:40] VITALS: BP 99/64
[2021-11-13] MEDS: HEPARIN SODIUM,PORCINE 5,000 UNITS/ML VIAL SQ SCH ×2 (00:08→09:46)
[2021-11-13 02:01] LABS: APPEARANCE,URINE CLEAR (CLEAR); BILIRUBIN,URINE NEGATIVE (NEGATIVE); GLUCOSE, URINE (UA) NEGATIVE (NEGATIVE); KETONES,URINE NEGATIVE (NEGATIVE); LEUKOCYTE ESTERASE ,URINE TRACE (NEGATIVE); NITRATE,URINE NEGATIVE (NEGATIVE); OCCULT BLOOD,URINE NEGATIVE (NEGATIVE); PH,URINE 5.5 (5.0-8.0); PROTEIN,URINE NEGATIVE (NEGATIVE); UROBILINOGEN,URINE 0.2 mg/dL (<=1.0)
[2021-11-13 02:02] LABS: CREATININE,URINE RANDOM 86.6 mg/dL (30.0-125.0); SODIUM,URINE RANDOM 30 mmol/l (20-110); UREA NITROGEN,URINE RANDOM 1021 mg/dL (350-1000)
[2021-11-13 02:11] LABS: BACTERIA,URINE None Seen /HPF (None Seen); RBC,URINE 0-2 /HPF (0-2)
[2021-11-13 03:35] VITALS: BP 120/76
[2021-11-13] MEDS: DEXTROSE 5%-0.9% SODIUM CHL 1,000 ML IV SCH (06:18)
[2021-11-13 06:56] LABS: GLUCOMETER DEV NAME(LOC) 5S.2B; GLUCOSE,POINT OF CARE 85 MG/DL (70-110)
[2021-11-13 07:38] LABS: BASOPHILS % (AUTO) 0.8 % (0.0-2.0); EOSINOPHILS % (AUTO) 7.5 % (1.0-6.0); HEMATOCRIT 36.5 % (41-53); HEMOGLOBIN 11.8 g/dL (13.5-17.5); LYMPHOCYTES # (AUTO) 1.1 K/uL (1.0-4.8); MEAN CORPUSCULAR HEMOGLOBIN 27.2 pg (26.0-34.0); MEAN CORPUSCULAR HGB CONC 32.2 G/dL (31.0-37.0); MEAN CORPUSCULAR VOLUME 84 fL (80-100); MONOCYTES # (AUTO) 0.6 K/uL (0.1-1.0); MONOCYTES % (AUTO) 9.3 % (2.0-9.0); NEUTROPHILS % (AUTO) 65.4 % (40.0-70.0); PLATELET COUNT (AUTO) 190 K/uL (150-450); RED BLOOD CELL COUNT(AUTO) 4.33 MIL/uL (4.50-5.90); RED CELL DISTRIBUTION WIDTH 16.3 % (11.5-14.5)
[2021-11-13 07:40] VITALS: BP 114/64
[2021-11-13] MEDS: DEXTROSE 5%-0.45% SODIUM CHL 1,000 ML IV SCH (08:00)
[2021-11-13 08:11] LABS: ALANINE AMINOTRANSFERASE 19 U/L (12-78); ALBUMIN 2.9 g/dL (3.4-5.0); ALKALINE PHOSPHATASE 95 U/L (46-116); ANION GAP 9 mmol/L (8-16); ASPARTATE AMINOTRANSFERASE 19 U/L (15-37); BILIRUBIN,TOTAL 0.4 mg/dL (0.1-1.0); CALCIUM, TOTAL 8.9 mg/dL (8.8-10.5); CARBON DIOXIDE 24 mmol/L (22-29); CHLORIDE 111 mmol/L (98-107); CREATININE 0.73 mg/dL (0.60-1.30); GLUCOSE,RANDOM 106 mg/dL (70-110); POTASSIUM 4.2 mmol/L (3.5-5.1); SODIUM SERUM 144 mmol/L (136-145); TOTAL PROTEIN, SERUM 6.4 g/dL (6.4-8.2); UREA NITROGEN, BLOOD 20 mg/dL (7-18)
[2021-11-13 08:15] LABS: GLOMERULAR FILTR. RATE CALC > 60 mL/min (>60)
[2021-11-13] MEDS: DOCUSATE SODIUM 100 MG CAPSULE PO SCH (09:45)
[2021-11-13] MEDS: PANTOPRAZOLE SODIUM 40 MG/VIAL IVP SCH (09:45)
[2021-11-13] MEDS: THIAMINE 100 MG TABLET PO SCH (09:45)
[2021-11-13] MEDS: MULTIVITAMINS WITH MINERALS, THERAPEUTIC TABLET PO SCH (09:45)
[2021-11-13 11:31] LABS: GLUCOMETER DEV NAME(LOC) 5S.2B; GLUCOSE,POINT OF CARE 88 MG/DL (70-110)
[2021-11-13 11:50] VITALS: BP 129/74
[2021-11-13 15:56] LABS: GLUCOMETER DEV NAME(LOC) 5S.2B; GLUCOSE,POINT OF CARE 86 MG/DL (70-110)
[2021-11-13 16:11] VITALS: BP 114/71
== END 2021-11-13 17:00 | disposition home or self-care (01) | DRG 392 ==
LOC: EMS 11:36 → 5N 15:26
PROVIDERS: ADMIT Hospitalist; ATTEND Hospitalist
DX: R11.2 Nausea with vomiting, unspecified (principal); N17.9 Acute kidney failure, unspecified; E44.1 Mild protein-calorie malnutrition; E86.0 Dehydration; K21.9 Gastro-esophageal reflux disease without esophagitis; E87.5 Hyperkalemia; F20.9 Schizophrenia, unspecified; J44.9 Chronic obstructive pulmonary disease, unspecified; E03.9 Hypothyroidism, unspecified; E11.9 Type 2 diabetes mellitus without complications; Z20.822 Contact with and (suspected) exposure to COVID-19; F17.210 Nicotine dependence, cigarettes, uncomplicated; N32.89 Other specified disorders of bladder; Z85.028 Personal history of other malignant neoplasm of stomach; Z79.82 Long term (current) use of aspirin; Z85.048 Personal history of other malignant neoplasm of rectum, rectosigmoid junction, and anus; Z90.49 Acquired absence of other specified parts of digestive tract
CPT/HCPCS: 74022; 76770; 80048; 80053; 81001; 82550; 82570; 82962; 83036; 83605; 83735; 83880; 84100; 84145; 84300; 84439; 84443; 84484; 84540; 85025; 85610; 85730; 87040; 87804; 93005; 99285; C9113; J0456; J0696; J1644; J7030; J7042; Q9967